=== PATIENT | male | born 1945 | race Caucasian/White ===

== ENCOUNTER 2021-01-12 09:37 | Emergency (ER) | payer MEDICARE, BC, SELFPAY ==
--- NOTE | ~2021-01-12 | XR_ITS ---
EXAMINATION: XR ankle LT min 3V EXAM DATE: 01/12/2021 09:55 INDICATION: FALL down stairs last p.m.; pain/swelling lat Lt ankle . Initial encounter. TECHNIQUE: Left ankle frontal, lateral and oblique projections obtained and reviewed. There is no pr ior study for comparison. FINDINGS: There is acute closed posttraumatic oblique mildly displaced fracture through the left fibu lar distal metaphysis extending into the superolateral aspect of the mortise. There is overlying soft tissue swelling. Medial malleolus appears intact, and mortise relationship appears maintained. Sma ll inferior calcaneal spur. Mild vascular calcifications. IMPRESSION: Left fibular distal metaphyseal fracture into mortise. Orthopedic consult. Reviewed, dictated and finalized at location A.
[2021-01-12 09:44] VITALS: BP 150/70; PULSE 95; RESP 16; TEMP 37.1; O2SAT 99
--- NOTE | 2021-01-12 09:46 | ED.GENADULT ---
HPI - General Adult General Chief complaint: Extremity Injury, Lower Stated complaint: L ANKLE INJURY Time Seen by Provider: 01/12/21 09:46 Source: patient Mode of arrival: ambulatory Limitations: no limitations History of Present Illness HPI narrative: 75-year-old male patient presents to the [facility] with complaints of left ankle pain. Patient states that he fell down one step last night. Patient states he took some aspirin last night as well as elevated it for about 45 minutes this morning. Denies any numbness or tingling to the toes. Patient has been able to walk on it but states it does hurt on the lateral side of the left ankle. Related Data Home Medications Medication Instructions Recorded Confirmed lisinopril-hydrochlorothiazide 1 tablet PO DAILY 10/13/19 01/12/21 sitagliptin [Januvia] 100 mg PO DAILY 10/13/19 01/12/21 aspirin 81 mg tablet,delayed 81 mg PO DAILY 09/18/20 01/12/21 release Allergies Allergy/AdvReac Type Severity Reaction Status Date / Time No Known Allergies Allergy Verified 01/12/21 09:43 Review of Systems Review of Systems: Narrative: CONSTITUTIONAL: Denies fever, chills, or sweats. EYES: Denies visual changes, redness, or discharge. ENT: Denies rhinorrhea, congestion, sore throat, or otalgia. CARDIOVASCULAR: Denies chest pain, palpitations, or edema. RESPIRATORY: Denies cough or dyspnea. GASTROINTESTINAL: Denies abdominal pain, nausea, vomiting, or diarrhea. GENITOURINARY: Denies dysuria or hematuria. SKIN: Denies rash or itching. MUSCULOSKELETAL: Denies back pain, joint pain, or myalgia. Positive left ankle pain since yesterday NEUROLOGIC: Denies headache, numbness, or weakness. PSYCHIATRIC: Denies anxiety or depression. [facility] Past Medical History Medical History BMI 26.0-26.9,adult BMI 27.0-27.9,adult Hyperlipidemia Hypertension Impacted cerumen Type 2 diabetes mellitus without complications Family History Family History Other Cerebrovascular accident Hypertension Social History Social History Smoking status: Never smoker Smoking end date: 10/05/04 Alcohol intake: current Comments At the time of my signature I agree with nursing past medical history, surgical, social, and family history. There is no relevant family history pertinent to the presenting complaint. Exam Narrative: Exam Narrative: GENERAL: Well-appearing, well-nourished, and in no acute distress. HEAD: Normocephalic, atraumatic. EYES: PERRLA and EOMI. ENT: Nares clear, no rhinorrhea or epistaxis. Mucous membranes moist. NECK: Supple. No lymphadenopathy CHEST: Clear to auscultation. No respiratory distress. HEART: Regular rate and rhythm. No murmur heard. Normal peripheral pulses. ABDOMEN: Soft, nontender, nondistended, normal active bowel sounds. EXTREMITIES: Patient is able to bear weight and ambulate but has increased pain to the left ankle. The L ankle is without obvious asymmetry or deformity when compared to the R ankle. Patient can flex/extend, invert/jhoan. No obvious surface trauma, ecchymosis, patient does have some soft tissue swelling noted over the lateral side of the left ankle. No bony tenderness to palpation over the medial or lateral malleolus. Patient does have some tenderness on palpation to the left fibula area. Anterior talofibular ligament, posterior talofibular ligament, calcaneofibular ligament nontender and without swelling. No tenderness or deformity of the midfoot or over the proximal fifth metatarsal. Good DP and posterior tibial pulses and sensation to light touch normal. Talar tilt test is negative for ligament laxity to valgus or vargus stress. Negative anterior draw. Peroneal nerve is intact with strong eversion and plantar flexion. SKIN: Warm, dry, no rash. NEURO: No focal deficits. Alert and oriented x3. C
== END 2021-01-12 10:40 | disposition home or self-care (01) ==
PROVIDERS: Emergency Provider Nurse Practitioner Family; PCP Family Medicine
DX: S82.832A Other fracture of upper and lower end of left fibula, initial encounter for closed fracture (principal); W10.9XXA Fall (on) (from) unspecified stairs and steps, initial encounter; E78.5 Hyperlipidemia, unspecified; I10 Essential (primary) hypertension; E11.9 Type 2 diabetes mellitus without complications
CPT/HCPCS: 29515; 73610; 99214; G0463

== ENCOUNTER 2021-01-25 11:00 | Outpatient (CLI) | payer MEDICARE, BC, SELFPAY ==
[2021-01-25 11:36] LABS: Alanine Aminotransferase 31 U/L (4-50); Cholesterol 133 mg/dL (0-200); HDL Direct 46 mg/dL; Triglycerides 81 mg/dL (<150)
[2021-01-25 11:39] LABS: Hemoglobin A1C 5.5 % (<5.7)
[2021-01-25 11:48] LABS: LDL Cholesterol Direct 68 mg/dL
== END 2021-01-25 11:01 | disposition home or self-care (01) ==
PROVIDERS: PCP Family Medicine; Visit Provider Family Medicine
DX: E78.2 Mixed hyperlipidemia (principal); E11.9 Type 2 diabetes mellitus without complications; Z13.220 Encounter for screening for lipoid disorders
CPT/HCPCS: 36415; 80061; 83036; 84460

== ENCOUNTER 2022-02-09 10:01 | Emergency (ER) | payer MEDICARE, BC, SELFPAY ==
--- NOTE | ~2022-02-09 | XR_ITS ---
EXAMINATION: XR foot RT min 3V DATE: 02/09/2022 10:42 INDICATION: Right foot pain, history of fifth metatarsal fracture. TECHNIQUE: Dorsoplantar, lateral, and 2 oblique views of the right foot were obtained. COMPARISON: 08/12/2012 FINDINGS: There is an old fracture of the fifth metacarpal neck. No acute fracture is identified. The re is mild osteoarthritis of multiple interphalangeal joints. Calcified atherosclerosis is noted. The re is dorsal soft tissue swelling of the foot. IMPRESSION: 1. Dorsal soft tissue swelling of the foot without acute osseous abnormality identified. Old fifth me tatarsal fracture. Reviewed, dictated and finalized at location A. IMPRESSION: 1. Dorsal soft tissue swelling of the foot without acute osseous abnormality id entified. Old fifth metatarsal fracture.
[2022-02-09 10:12] VITALS: BP 167/92; PULSE 87; RESP 16; TEMP 36.3; O2SAT 100
--- NOTE | 2022-02-09 10:28 | ED.EXTPRO ---
HPI - Extremity Problem General Chief complaint: Extremity Problem,Nontraumatic Stated complaint: rt foot swelling Source: patient Mode of arrival: ambulatory Limitations: no limitations History of Present Illness HPI Narrative: Patient presents for evaluation of pain, swelling, redness to the right foot. He indicates approximately 7 to 10 days ago he noticed some discomfort in the affected area. He cannot identify any recent injury. He did fracture his 5th metatarsal many years ago but did not require surgical intervention. He has not had an problems with his foot since that time. Approximately four days ago he noted redness to the right foot. He contacted ortho, Dr Ragsdale, and is scheduled to see him in two days. He currently rates his pain as 7/10, more noticeable with weightbearing and movement. He has not been taking any medication for his symptoms. He is diabetic and compliant with januvia. Last a1c was 5.8 per his reports. He checks his BS daily at home with most readings 120-125. No fever, chills, nausea, vomiting, drainage from the area. No hx of gout, although he is on hctz. Related Data Home Medications Medication Instructions Recorded Confirmed ascorbate calcium (vitamin C) PO 01/16/21 12/16/21 aspirin 81 mg tablet,delayed 81 mg PO DAILY 01/16/21 12/16/21 release multivitamin 1 tablet PO DAILY 01/16/21 12/16/21 Allergies Allergy/AdvReac Type Severity Reaction Status Date / Time metformin AdvReac Mild GI upset Verified 02/09/22 10:12 Review of Systems Review of Systems: CONSTITUTIONAL: Denies fever, chills, or sweats. EYES: Denies visual changes, redness, or discharge. ENT: Denies rhinorrhea, congestion, sore throat, or otalgia. CARDIOVASCULAR: Denies chest pain, palpitations, or edema. RESPIRATORY: Denies cough or dyspnea. GASTROINTESTINAL: Denies abdominal pain, nausea, vomiting, or diarrhea. GENITOURINARY: Denies dysuria or hematuria. SKIN: Reports redness to the right foot. Denies rash or itching. MUSCULOSKELETAL: Reports right foot pain. Denies back pain NEUROLOGIC: Denies headache, numbness, dizziness, or weakness. PSYCHIATRIC: Denies anxiety or depression. [facility] Past Medical History Medical History BMI 26.0-26.9,adult BMI 27.0-27.9,adult Erectile dysfunction Hyperlipidemia Hypertension Impacted cerumen Low testosterone Screen for colon cancer Type 2 diabetes mellitus without complications Surgical History Surgical History History of hernia repair Family History Family History Father Myocardial infarction Other Breast cancer Cerebrovascular accident Hypertension Social History Social History Smoking status: Former smoker Smoking end date: 10/05/03 Alcohol intake: current Drinks per week: 5 Substance use: never Living arrangements: with family Gender identity (if verbalized by the patient): Male Sexual Orientation (if Verbalized by the Patient): Straight or Heterosexual Spiritual care concerns: No Exam Narrative: GENERAL: Well-appearing, well-nourished, and in no acute distress. HEAD: Normocephalic, atraumatic. EYES: PERRLA and EOMI. ENT: Nares clear, no rhinorrhea or epistaxis. Mucous membranes moist. Oropharynx without tonsillar hypertrophy exudate or other lesions. Bilateral TMs pearly white nonbulging NECK: Supple. No adenopathy or masses. No carotid bruits or JVD CHEST: Clear to auscultation. No respiratory distress. No wheezes rales or rhonchi HEART: Regular rate and rhythm. No murmur heard. Normal peripheral pulses. ABDOMEN: Soft, nontender, nondistended, normal active bowel sounds. EXTREMITIES: Normal range of motion. There is edema to dorsal aspect of right foot with associated tenderness
== END 2022-02-09 11:06 | disposition home or self-care (01) ==
PROVIDERS: Emergency Provider Nurse Practitioner; PCP Family Medicine
DX: M79.671 Pain in right foot (principal); E78.5 Hyperlipidemia, unspecified; I10 Essential (primary) hypertension; Z87.891 Personal history of nicotine dependence
CPT/HCPCS: 73630; 99213; G0463

== ENCOUNTER → 2022-02-24 07:57 | Outpatient (CLI) | payer MEDICARE, BC, SELFPAY ==
--- NOTE | ~2022-02-24 | MR_ITS ---
EXAMINATION: MR foot RT wo con DATE: 02/24/2022 08:37 INDICATION: Right foot stress fracture presenting with lateral sided forefoot pain and swelling. TECHNIQUE: Magnetic resonance imaging (MRI) of the right fore/mid foot was performed without intraven ous contrast. Sequences included sagittal T1-weighted FSE, sagittal fluid sensitive FSE STIR, coronal PD-weighted FS FSE, coronal T1-weighted FSE, axial PD-weighted FS FSE, and axial PD-weighted FSE. COMPARISON: Right foot radiographs dated 02/11/2022 FINDINGS: Old healed fracture deformity at the mid to distal diaphysis of the fifth metatarsal. The fracture is healed with 3-4 mm lateral displacement as well as a few millimeter of overriding resulting in some shortening of the metatarsal. No abnormal increased signal to suggest stress reaction. No other fract ures identified. There is some new bone formation along the lateral aspect of the proximal diaphysis of the fourth metatarsal resulting in development of a pseudoarthrosis with the medial margin of the portion of the fifth metatarsal comprising the proximal tip of the fracture margin of the distal frag ment. Mild polyarticular osteoarthritis at the first metatarsophalangeal and a few tarsometatarsal an d interphalangeal joints. Additional mild subarticular edema at the base of the fourth metatarsal and at both sides of the first tarsal metatarsal joint. Visualized portion of the flexor and extensor te ndons are normal. There is feathery muscular edema along side a long thin ganglion cyst extending 4 c m proximal to distal along a likely intrasubstance split tear at the myotendinous junction of the abd uctor digiti minimi muscle. This appears to arise distally near were the tendon passes across a small bone fragment fused along the lateral plantar margin of the fracture and measures up to maximal of 3 mm orthogonal diameter. The Lisfranc ligament as well as the collateral ligament complex at the meta tarsophalangeal and interphalangeal joints are normal. Physiologic amount fluid in the joint spaces. No tenosynovitis. IMPRESSION: 1. Old healed fracture deformity at the fifth metatarsal diaphysis with secondary pseudoarthrosis wit h an adjacent osseous excrescence arising from the lateral margin of the proximal fourth metatarsal d iaphysis. No stress reaction or other acute osseous abnormality. 2. Small elongated intrasubstance ganglion cyst extending along the myotendinous junction of the abdu ctor digiti minimi likely along a longitudinal split tear which may arise from mass effect along the undersurface of the muscle and tendon resulting from a small fused bone fragment at the fracture. 3. 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 Reviewed, dictated and finalized at location B. IMPRESSION: 1. Old healed fracture deformity at the fifth metatarsal diaphysis with seconda ry pseudoarthrosis with an adjacent osseous excrescence arising from the latera l margin of the proximal fourth metatarsal diaphysis. No stress reaction or oth er acute osseous abnormality. 2. Small elongated intrasubstance ganglion cyst extending along the myotendinou s junction of the abductor digiti minimi likely along a longitudinal split tear which may arise from mass effect along the undersurface of the muscle and tend on resulting from a small fused bone fragment at the fracture. 3. 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
== END ==
PROVIDERS: PCP Family Medicine; Visit Provider Orthopaedic Surgery
DX: M84.374A Stress fracture, right foot, initial encounter for fracture (principal); M19.071 Primary osteoarthritis, right ankle and foot
CPT/HCPCS: 73718

== ENCOUNTER → 2022-10-24 09:18 | Outpatient (CLI) | payer MEDICARE, BC, SELFPAY ==
--- NOTE | ~2022-10-24 | MR_ITS ---
EXAMINATION: MR foot RT wo/w con DATE: 10/24/2022 10:23 INDICATION: Right foot pain with chronic wound at the lateral side of the foot TECHNIQUE: Magnetic resonance imaging (MRI) of the affected fore/mid foot was performed without intra venous contrast. Sequences included sagittal T1-weighted FSE, sagittal fluid sensitive FSE STIR, la nal PD-weighted FS FSE, coronal T1-weighted FSE, axial PD-weighted FS FSE, axial PD-weighted FSE and axial T1-weighted FS FSE. Postcontrast axial, sagittal and coronal T1-weighted FS FSE were also obtai sj. COMPARISON: Right foot radiographs dated 10/14/2022 and MRI dated 02/24/2022 FINDINGS: Old healed fifth metatarsal diaphyseal fracture deformity again seen with likely small pseudoarthrosi s between the medial side of the fracture margin and the closely opposed lateral margin of the fourth metatarsal diaphysis hematoma which is some associated heterotopic ossification. No acute fracture, osteomyelitis or other pathologic marrow replacing process. Mild polyarticular osteoarthritis with un changed mild degenerative subarticular edema-like signal change at the bases lateral base of the four th metatarsal and mild subarticular cystlike changes at both sides of the dorsolateral aspect of the first tarsal metatarsal joint. There is soft tissue swelling with subcutaneous edema lateral to the p roximal to mid fifth metatarsal. Prior muscular edema and swelling and small intramuscular likely flu id collection involving the abductor digiti minimi appears to have resolved. There is a new T2 hyperi ntense and enhancing lesion in the more superficial subcutaneous tissues underlying the marker indica ting the region of concern. The appearance on the sagittal T2-weighted images however is suspicious for a small abscess or phlegmon measuring 18 x 9 x 4 mm surrounding an approximately 11 mm long irreg ular linear low signal intensity filling defect which suggests a foreign body although no evident rad iopaque foreign body is evident on the prior radiographs suggests this could represent either an ecta tic matter, blastic or other material of similar density to soft tissue. IMPRESSION: 1. 18 x 9 x 4 mm T2 hyperintense enhancing lesion in the subcutaneous tissues posterolateral to the m id fifth metatarsal which surrounds an 11 mm thin low signal intensity filling defect. This is most s uspicious for a small abscess/phlegmonous change surrounding a retained foreign body. Reviewed, dictated and finalized at location A. PUSHER IMPRESSION: 1. 18 x 9 x 4 mm T2 hyperintense enhancing lesion in the subcutaneous tissues p osterolateral to the mid fifth metatarsal which surrounds an 11 mm thin low sig nal intensity filling defect. This is most suspicious for a small abscess/phleg monous change surrounding a retained foreign body.
== END ==
PROVIDERS: PCP Family Medicine; Visit Provider Orthopaedic Surgery
DX: M79.671 Pain in right foot (principal)
CPT/HCPCS: 73720; A9577

== ENCOUNTER 2022-11-03 08:54 | Outpatient (CLI) | payer MEDICARE, BC, SELFPAY ==
--- NOTE | 2022-11-03 09:17 | ECG_ITS ---
Measurements Intervals [place] Rate: 53 P: 39 ID: [id number] QRS: 8 QRSD: 80 T: 9 QT: 368 QTc: 346 Interpretive Statements SINUS BRADYCARDIA BASELINE ARTIFACT- I, III, AVR, AVL, AVF BORDERLINE ECG NO PREVIOUS ECG AVAILABLE FOR COMPARISON Electronically Signed On 11-03-2022 11:59:08 [employer] by Taye Yi D.O.
[2022-11-03 09:50] LABS: Anion Gap 6 mmol/L (8-16); Blood Urea Nitrogen 15 mg/dL (9-20); Calcium 8.7 mg/dL (8.4-10.2); Carbon Dioxide 29 mmol/L (22-30); Chloride 99 mmol/L (98-107); Estimated Glomerular Filt Rate > 60; Glucose 143 mg/dL (65-110); Potassium 3.8 mmol/L (3.4-5.0); Sodium 134 mmol/L (137-145)
== END 2022-11-03 08:55 | disposition home or self-care (01) ==
LOC: ANHSURGERY 08:59
PROVIDERS: Anesthesiology; PCP Family Medicine; Visit Provider Orthopaedic Surgery
DX: E11.9 Type 2 diabetes mellitus without complications (principal); I10 Essential (primary) hypertension; Z01.818 Encounter for other preprocedural examination; R94.31 Abnormal electrocardiogram [ECG] [EKG]
CPT/HCPCS: 36415; 80048; 93005

== ENCOUNTER 2022-11-10 01:19 | Day surgery (SDC) | payer MEDICARE, BC, SELFPAY ==
[2022-10-30 15:08] VITALS: BMI 26.6
--- NOTE | 2022-10-30 15:37 | PC.NURSE ---
Report to the Outpatient Waiting Room, entrance under the green pavilion located off [facility], at time __6:00AM on date ___11/10/22____. Planned Procedure Time: __7:30AM . Time changes happen often and if your time is changed the preop area will call you the afternoon before. - You and your visitor will be asked to self-screen and do not enter if you have any COVID symptoms. - Only one visitor is requested with a max of two and NO children visitors are allowed at this time. - The patient visitor may be requested to leave or wait in car when not with patient due to distancing restrictions. - A mask is optional within the hospital at this time. Patients may have clear liquids (water, carbonated beverages, clear teas, apple juice) until 3 hours prior to surgery with a maximum of 20 ounces. - No food from midnight until time of surgery Take the following medications with a SIP of water the morning of surgery: ___NONE DO NOT STOP ANY OF YOUR OTHER PRESCRIPTION MEDICATIONS PRIOR TO SURGERY ?EXCEPT THE FOLLOWING Medications to discontinue per physician HOLD ASPIRIN7 DAYS PRE-OP PER DR BROWNING( PER PATIENT)- LAST DOSE 11/03/22, HOLD ALL VITAMINS/SUPPLEMENTS 3 DAYS PRE-OP- LAST DOSE 11/06/22 Please no make-up, nail tamazight, hairspray, perfume, deodorant, or body powder the day of surgery. No jewelry (including any body piercings) or valuables the day of surgery, leave them at home. Please take a shower or bath the night before, or the morning of, surgery with an antibacterial soap. Wear comfortable, loose fitting clothing. Children are encouraged to wear pajamas. - Jewelry must be removed prior to entering the operating room. Rings and piercings that are not removed may be cut off. - The hospital will not accept responsibility for valuables. - Please leave all valuables, including medications, at home the day of surgery. If you are going home after surgery, a licensed party bus driver must drive you home. - NO public transportation without another adult if you receive anesthesia. - We recommend that an adult stay with you for 24 hours following discharge. - We also recommend that you do not drive, make important decision, drink alcoholic beverages, or take any drugs that were not prescribed by your health care provider for at least 24 hours after your discharge time. Follow any additional instructions given to you from your surgeon. If you or anyone in your household have experienced Covid symptoms in the past week, please notify your surgeon or the nurse liaison at the phone number below for possible testing. Telephone instructions given to __PATIENT & WIFE___and asked if any additional questions and then verbalized understanding. Patient advised to call surgeon office or pre surgery nurse liaison [phone] if any additional questions.
--- NOTE | 2022-11-07 13:51 | PM.IMHP ---
H&P: HPI History of Present Illness Date/Time: 11/07/22 13:51 Chief Complaint: Right foot ulcer Narrative: 76-year-old with right foot 5th metatarsal fracture treated non operatively. Developed ulceration with a dose a lateral foot. Several biopsies failed to show etiology. MRI shows inflammation and possible foreign body at the 5th metatarsal. Review of Systems Constitutional: Constitutional: Denies fever(s) Eyes: Eyes: Denies blurry vision ENT: Reports Normal hearing present Cardiovascular: Cardiovascular: Denies chest pain and Denies dyspnea Respiratory: Respiratory: Denies dyspnea and Denies wheezing Gastrointestinal: Gastrointestinal: Denies abdominal pain Genitourinary: Genitourinary: Denies urinary urgency Musculoskeletal: Musculoskeletal: Reports as per HPI and Denies numbness Integumentary/Breasts: Skin/Breast: Denies changing lesions and Denies sores Neurologic: Reports Normal hearing present, Denies behavioral changes, Denies confusion, Denies numbness and Denies convulsions Psychiatric: Psychiatric: Denies behavioral changes, Denies confusion and Denies hallucinations Endocrine: Endocrine: Denies heat intolerance Hematologic/Lymphatic: Hematologic/Lymphatic: Denies easy bleeding Allergic/Immunologic: Allergic/Immunologic: Denies wheezing [facility] Past Medical History Medical History (Updated 11/07/22 @ 13:54 by Viet Ragsdale MD) 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 Sibling No problems noted. 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[employer] Gender identity (if verbalized by the patient): Male Sexual Orientation (if Verbalized by the Patient): Straight or Heterosexual Spiritual care concerns: No Meds Home Medications and Allergies Home Medications Medication Instructions Recorded Confirmed Type aspirin 81 mg tablet,delayed 81 mg PO DAILY 01/16/21 10/30/22 History release (Adult Aspirin Regimen) multivitamin 1 tablet PO DAILY 01/16/21 10/30/22 History sildenafil 100 mg tablet 100 mg PO DAILY PRN sexual 10/25/21 10/30/22 Rx activity #30 tabs ezetimibe 10 mg tablet 10 mg PO DAILY #90 tabs 07/27/22 10/30/22 Rx mupirocin 2 % topical ointment 1 applic topical BID #22 grams 10/14/22 10/30/22 Rx ascorbate calcium (vitamin C) 500 500 mg PO DAILY 10/30/22 10/30/22 History mg capsule atorvastatin 80 mg tablet 80 mg PO DAILY 10/30/22 10/30/22 History lisinopril 10 1 tablet PO QAM 10/30/22 10/30/22 History mg-hydrochlorothiazide 12.5 mg tablet sitagliptin phosphate 100 mg 100 mg PO QAM 10/30/22 10/30/22 History tablet (Januvia) Allergies Allergy/AdvReac Type Severity Reaction Status D
[2022-11-10] VITALS (7 sets, daily range): BP systolic 101–147; BP diastolic 56–97; PULSE 61–77; RESP 12–18; TEMP 36.3; O2SAT 96–99
--- NOTE | ~2022-11-10 | XR_ITS ---
EXAMINATION: XR surgery orthopedic DATE: 11/10/2022 08:12 INDICATION: Right foot foreign body excision. TECHNIQUE: 3 intraoperative fluoroscopic views of right foot were obtained. I was not present. Fluoro scopy exposure time was 14 seconds. COMPARISON: Right foot radiographs 10/14/22 FINDINGS: There is an old healed fracture deformity of diaphysis of fifth metatarsal. No radiopaque f oreign body. IMPRESSION: 1. No radiopaque foreign body. Reviewed, dictated and finalized at location A. E DELIVERY CLERK
[2022-11-10] MEDS: ACETAMINOPHEN 500 MG TABLET 1000 MG PO (06:22)
[2022-11-10] MEDS: KETOROLAC 15 MG/ML VIAL (*BKC) IV PUSH (06:22)
[2022-11-10 06:37] LABS: Glucose Point of Care 126 mg/dl (65-105)
[2022-11-10] MEDS: LACTATED RINGERS 1,000 ML 30 ML IV CONT (07:00)
--- NOTE | 2022-11-10 07:13 | WPDANESEPPF ---
Anes - Initial Pre Proc Eval Procedure: Operation Date: 11/10/22 07:30 Proposed Procedures p Excision Foreign Body Right Foot with Debridement - Viet Ragsdale MD Date/Time: 11/10/22 07:13 Surgeon: Viet Ragsdale MD Pre Op Diagnosis: right foot ulcer, foreign body Patient Data Age: 76 Gender: M Height: 1.68 m Weight: 75 kg Allergies Allergy/AdvReac Type Severity Reaction Status Date / Time metformin AdvReac Mild GI upset Verified 10/30/22 15:01 Home Medications Medication Instructions Recorded Confirmed Type aspirin 81 mg tablet,delayed 81 mg PO DAILY 01/16/21 10/30/22 History release (Adult Aspirin Regimen) multivitamin 1 tablet PO DAILY 01/16/21 10/30/22 History sildenafil 100 mg tablet 100 mg PO DAILY PRN sexual 10/25/21 10/30/22 Rx activity #30 tabs ezetimibe 10 mg tablet 10 mg PO DAILY #90 tabs 07/27/22 10/30/22 Rx mupirocin 2 % topical ointment 1 applic topical BID #22 grams 10/14/22 10/30/22 Rx ascorbate calcium (vitamin C) 500 500 mg PO DAILY 10/30/22 10/30/22 History mg capsule atorvastatin 80 mg tablet 80 mg PO DAILY 10/30/22 10/30/22 History lisinopril 10 1 tablet PO QAM 10/30/22 10/30/22 History mg-hydrochlorothiazide 12.5 mg tablet sitagliptin phosphate 100 mg 100 mg PO QAM 10/30/22 10/30/22 History tablet (Januvia) Laboratory Tests 11/10/22 06:34 POC Capillary Glucose 126 mg/dl H mg/dl (65-105) Patient hx anesthesia problems: none Family hx anesthesia problems: other (brother combative) Results Review: All pre-operative results and documents have been reviewed as part of the pre-operative evaluation. [facility] Past Medical History Medical History 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 Sibling No problems noted. 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[employer] Gender identity (if verbalized by the patient): Male Sexual Orientation (if Verbalized by the Patient): Straight or Heterosexual Spiritual care concerns: No Anes - Eval Final PreProcedure Day of Procedure 11/10/22 07:13 Patient weight: overweight Heart: regular rate and rhythm Lungs: decreased breath sounds Airway: Mallampati scale class II Neurological: alert and oriented Last oral intake: >/= 8 hours ASA classification: III Emergent: no Anesthetic plan: proceed Anesthesia type and monitoring: general LMA and standard monitoring Results Review: All pre-operative results and documents have been reviewed as part of the pre-operative evaluation. Informed Consent: The patient's anesthetic plan and its attendant risks and benefits wer
--- NOTE | 2022-11-10 07:20 | WPDHPUPDATE1 ---
History and Physical Update Update Date/Time: 11/10/22 07:20 History and Physical has been reviewed, including an updated exam of the patient. There are NO changes in the patient's condition. Risks, benefits, and alternatives have been discussed and questions answered. Patient agrees to proceed with procedure.
[2022-11-10] MEDS: ceFAZolin 2 GM/D5W 50 ML 2 GM/50 ML BAG IVPB (07:27)
[2022-11-10] MEDS: BUPivacaine HCL 0.5% 10 ML AMP 30 ML INFILTRATE (07:47)
[2022-11-10 08:28] LABS: Glucose Point of Care 126 mg/dl (65-105)
[2022-11-10] MEDS: fentaNYL CITRATE INJ (*CRX) 100 MCG/2 ML VIAL 25 MCG IV PUSH (08:29)
--- NOTE | 2022-11-10 08:29 | W.PM.PROC2 ---
Procedure Note - Detailed Date of Procedure 11/10/22 Pre-op Diagnosis right foot ulcer, foreign body Post-op Diagnosis Other (Exostosis right 5th metatarsal) Procedure Performed excision exostosis right 5th metatarsal Surgeon Viet Ragsdale MD Saturation Equipment Operator 1st medical research assistant Anesthesia General Indications 76-year-old gentleman with a nonhealing ulcer over the dorsal lateral aspect of the right foot. Previous 5th metatarsal fracture. MRI shows inflammation. Patient presents for operative treatment due to nonhealing ulcer. Findings Inflammatory tissue extending from the ulcer to the 5th metatarsal exostosis. Description of Procedure Patient identified in the preoperative holding. Informed consent given. Operative extremity marked. Patient received intravenous antibiotics. Patient brought to the operating room where underwent general anesthetic by anesthesia team. Positioned supine on operating room table. Time-out performed confirming the patient, site of the surgery and the plan. Right foot prepped draped usual sterile surgical fashion using a Betadine prep solution. Foot and ankle exsanguinated and calf tourniquet inflated to 225 mmHg. Local anesthetic with 0.5% Marcaine plain. A 6 mm ulcer was present over the dorsal lateral aspect of the right foot. Longitudinal incision was made over the 5th metatarsal with a 15 blade knife ellipsing the ulcer and excising this as 1 unit. The ulcer continued down to the 5th metatarsal bone where there was exostosis present from the previous fracture healing. Osteotome and rongeur used to remove the exostosis. No abscess, infection or foreign body was noted. Wound then irrigated. The ulcer and surrounding soft tissue were passed off as specimen. Image intensification was brought in to confirm the resection of the exostosis as well as healing of the 5th metatarsal. Soft tissue closed with 3-0 Monocryl interrupted suture. Skin repaired with 4-0 nylon interrupted suture. Sterile dressing applied. The patient was then woken from anesthesia, extubated and taken to the recovery room in stable condition. All sponge, needle, instrument counts were correct at the end of the case. Estimated Blood Loss 2 Tourniquet Time 35 Drains No Packing No Pathology Yes ( Ulcer and soft tissue dorsal lateral foot from the skin surface extending to the metatarsal bone.) Complications None Condition Stable Disposition PACU [facility] Billing Surgery - Charge Forward: Surgery Billing ([id number])
== END 2022-11-10 09:58 | disposition home or self-care (01) ==
PROVIDERS: PCP Family Medicine; Visit Provider Orthopaedic Surgery
PROC: (CPT 28104; principal; 2022-11-10 07:30)
DX: E11.621 Type 2 diabetes mellitus with foot ulcer (principal); M89.9 Disorder of bone, unspecified; L97.516 Non-pressure chronic ulcer of other part of right foot with bone involvement without evidence of necrosis; S92.351S Displaced fracture of fifth metatarsal bone, right foot, sequela; X58.XXXS Exposure to other specified factors, sequela; I10 Essential (primary) hypertension; E78.5 Hyperlipidemia, unspecified; Z87.891 Personal history of nicotine dependence; Z79.82 Long term (current) use of aspirin; Z79.84 Long term (current) use of oral hypoglycemic drugs
CPT/HCPCS: 28104; 82948; 88300; 88304; 99199; A9270; J0690; J1885; J2405; J2704; J3010; J7120

== ENCOUNTER 2023-01-14 12:18 | Outpatient (NON) | payer MEDICARE, BC, SELFPAY | END 2023-01-14 12:19 | disposition home or self-care (01) | PROVIDERS: PCP Family Medicine; Visit Provider Orthopaedic Surgery | DX: L97.512 Non-pressure chronic ulcer of other part of right foot with fat layer exposed (principal) | CPT/HCPCS: 87070; 87075; 87205 ==

== ENCOUNTER 2023-02-17 06:36 | Outpatient (CLI) | payer MEDICARE, BC, SELFPAY ==
--- NOTE | ~2023-02-17 | MR_ITS ---
MRI of the right foot CLINICAL HISTORY: Chronic ulcer TECHNIQUE: Sagittal T1-weighted and STIR images, axial T1-weighted, T2 fat-sat, and T1 fat-sat images , and coronal T1-weighted and T2 fat-sat images were performed. Following intravenous administration of 15 cc MultiHance gadolinium, T1-weighted fat-sat imaging was performed in the axial, coronal, and sagittal planes. FINDINGS: Bone marrow signals are unremarkable. There is no marrow edema, acute fracture, or evidence for osteomyelitis. There is an old, healed fracture deformity of the distal fifth metatarsal shaft. Visualized joint spaces are relatively well-preserved, with scattered minimal degenerative changes. N o joint effusion evident. Flexor and extensor tendons are intact. Intrinsic musculature of the foot is unremarkable. Visualized plantar fascia is unremarkable. There is a soft tissue ulcer at the lateral aspect of the foot at th e level of the mid shaft of the fifth metatarsal. No distinct abscess evident. No other soft tissue a bnormality identified. IMPRESSION: Soft tissue ulcer at the lateral foot at the level of the mid fifth metatarsal shaft. No osteomyelitis or abscess evident. Old, healed fracture deformity of the distal fifth metatarsal shaft. Reviewed, dictated and finalized at [facility].
== END 2023-02-17 06:37 | disposition home or self-care (01) ==
PROVIDERS: PCP Family Medicine; Visit Provider Orthopaedic Surgery
DX: L97.512 Non-pressure chronic ulcer of other part of right foot with fat layer exposed (principal)
CPT/HCPCS: 73720; A9577

== ENCOUNTER 2024-03-16 16:27 | Outpatient (CLI) | payer MEDICARE, BC, SELFPAY ==
--- NOTE | ~2024-03-16 | MR_ITS ---
MRI of the brain Clinical History: Amnesia Technique: Axial and sagittal T1-weighted images were acquired. These were followed by axial T2-weigh tanya, diffusion weighted, gradient, and FLAIR images. Findings: There is no acute infarct, intracranial hemorrhage, or mass lesion. There are minimal chron ic white matter changes in the periventricular white matter. Ventricles and subarachnoid spaces are minimally dilated. Orbits are unremarkable. There is right max illary sinus disease. Remaining paranasal sinuses and mastoid air cells are clear. Major intracranial flow voids are intact. Sagittal midline structures are intact. IMPRESSION: No acute infarct, intracranial hemorrhage, or mass lesion. Minimal chronic microvascular ischemic changes. Right maxillary sinus disease. Reviewed, dictated and finalized at location .
== END 2024-03-16 16:28 | disposition home or self-care (01) ==
LOC: ANHIMG 16:27
PROVIDERS: PCP Family Medicine; Visit Provider Family Medicine
DX: R41.3 Other amnesia (principal); R41.0 Disorientation, unspecified
CPT/HCPCS: 70551

== ENCOUNTER 2025-06-06 12:30 | Outpatient (RCR) | payer MEDICARE, BC, SELFPAY ==
--- NOTE | 2025-03-31 12:50 | OPREHPOC ---
Outpatient Therapy Plan of Care This is a Multidisciplinary Plan of Care that may contain components documented by all disciplines (PT, OT, and ST.) ST Problem 1 ST Problem #[address] Goal 1 Goal / Goal Update The patient will participate in home programming to improve carry over/generalization of skills to home environment. Target Visit 6 ST Goal 1 Goal / Goal Update Auditory Comprehension 1. The patient will comprehend short complex paragraph length information 2-3 details with 80% minimal cues. 2. The patient will answer complex yes and no questions with 85% minimal cues. Target Visit 10 Goal 1 Goal / Goal Update Verbal Expression: 1. The patient will demonstrate use of compensatory word retrieval techniques provided by speech pathologist 85% minimal cues 2. the patient will state object function for common and abstract items with 85% minimal cues. 3. The patient will name common and abstract items with 85% minimal cues 4. The patient will complete 4-5 simple conversation exchanges without noted word searching 80% of the time using compensatory techniques minimal cues.
--- NOTE | 2025-03-31 12:50 | STOPEVAL1 ---
Assessment and note entered by Nohemy Campbell, DAIRY INSPECTOR Evaluation Information Assessment Status Evaluation Diagnosis R47.01 ICD-10 Condition Codes (ST) Dysphagia, pharyngoesophageal phase R13.14 Subjective Information The patient is a 79 year old male referred by his primary care physician due to concerns of early onset aphasia. The patient and spouse state they have noticed him having difficulty completing sentences, thinking of words, and expressing ideas in daily conversation exchange for a few months. Reported Pain Level Pain Score 0: Self Report Assessment ST Clinical Summary The patient is a 79 year old male referred by his primary care physician due to concerns of early onset aphasia. The patient and spouse state they have noticed him having difficulty completing sentences, thinking of words, and expressing ideas in daily conversation exchanges for a few months. The patient was administered the [facility] Adult Language Evaluation: Areas assessed include Auditory Comprehension, Verbal Expression, Reading Comprehension, and Graphic Expression. Auditory Comprehension: the patient had deficits noted for 3-step/Multiple Step directions 75% accuracy, Complex Yes and No questions 80% accuracy, Complex Paragraph Comprehension 70% accuracy. Difficulty noted secondary to delayed auditory processing, comprehension, and recall. Verbal Expression: Difficulty noted for simple naming of common objects 75% accuracy, Object function description 80% accuracy, Divergent Naming 75% accuracy, and Formulation of complex and simple ideas. Difficulty noted secondary to word-finding and thought organization. Reading Comprehension and Graphic Expression appear within functional limits. Patient and spouse state he does very little reading. Recommending Speech therapy Services to address Auditory Comprehension and Verbal Expression impairments. Reviewed evaluation results and recommendations with the patient and spouse. They are agreeable to treatment. Plan of Care Interventions Treatment of Language ST Services Indicated Yes Treatment Frequency and 1x week x 10 visits. Duration These treatments will address the objective and functional deficits as defined above. The patient will be advanced safely and appropriately in order for the patient to progress towards his/her prior level of function. Additional exercises will be introduced and as well as a comprehensive home exercise program upon discharge, if needed, ?to ensure carryover of functional gains achieved in the clinic. This treatment plan has been reviewed and agreement upon by the patient.
--- NOTE | 2025-06-06 16:18 | STOPREEVAL ---
Assessment and note entered by Nohemy Campbell DIGITAL FORENSICS EXAMINER Evaluation Information Assessment Status Re-evaluation Reported Pain Level Pain Score 0: Self Report Assessment ST Clinical Summary The patient is a 79 year old male referred by his primary care physician due to concerns of early onset aphasia. The patient and spouse state they have noticed him having difficulty completing sentences, thinking of words, and expressing ideas in daily conversation exchanges for a few months. On todays date the patient was re-evaluated to assess benefits of speech-language intervention from the initial evaluation. Patient's spouse reports they have noticed improvement not only within outpatient treatment sessions but also at home. The patient was administered the [facility] Adult Language Evaluation: Areas assessed include Auditory Comprehension, Verbal Expression, Reading Comprehension, and Graphic Expression. Auditory Comprehension: The patient had deficits noted for 3-step/Multiple Step directions 80% accuracy (improved from 75% at the initial evaluation), Complex Yes and No questions 100% accuracy(Improved from the initial evaluation 80%) , Simple Paragraph Comprehension 100% accuracy( Improved from the initial evaluation 70%), Moderate and complex paragraph recall 75-80%( Improved from the initial evaluation 70-75%). Difficulty noted secondary to delayed auditory processing, recall, and sustained attention. Verbal Expression: Difficulty noted for simple naming of common objects 85-90% accuracy(improved from the initial evaluation 75%) abstract/less common objects 75% , Object function description 100% accuracy(improved from the initial evaluation 80%), Divergent Naming 85% accuracy for 8-10 items( Improved from the initial evaluation 75% 3- 4 items simple categories), and Formulation of complex ideas. Difficulty noted secondary to word- retrieval. The patient has shown improvement in comprehension and recall of complex information secondary to improved recall and sustained attention. He has also shown improved sentence formulation in simple conversation exchanges with reduced episodes of word searching. Reading Comprehension and Graphic Expression remain within functional limits. Recommending continued speech therapy services, five additional visits to address remaining goals for Auditory Comprehension with recall of moderate and complex paragraph length information and Verbal Expression to address word retrieval and utilization of compensatory techniques with increased accuracy and carry over into everyday routines. Reviewed re-evaluation results and recommendations with the patient and spouse. They are agreeable to five additional treatment sessions. Plan of Care Interventions Treatment of Language ST Services Indicated Yes Treatment Frequency and 1x week x 10 visits. Duration These treatments will address the objective and functional deficits as defined above. The patient will be advanced safely and appropriately in order for the patient to progress towards his/her prior level of function. Additional exercises will be introduced and as well as a comprehensive home exercise program upon discharge, if needed, ?to ensure carryover of functional gains achieved in the clinic. This treatment plan has been reviewed and agreement upon by the patient.
--- NOTE | 2025-06-06 16:19 | OPREHPOC ---
Outpatient Therapy Plan of Care This is a Multidisciplinary Plan of Care that may contain components documented by all disciplines (PT, OT, and ST.) ST Problem 1 ST Problem #[address] Goal 1 Goal / Goal Update The patient will participate in home programming to improve carry over/generalization of skills to home environment. 06/06/25 Goal update: Goal Met Utilizing strategies to carry over to home environment outside treatment. Target Visit [address] Goal 1 Goal / Goal Update Auditory Comprehension 1. The patient will comprehend short complex paragraph length information 2-3 details with 80% minimal cues. 06/06/25 Update: Goal Met : Simple paragraph length information 100% 2 details, Short moderate paragraph length information 75-80% minimal cues. 2. The patient will answer complex yes and no questions with 85% minimal cues. 06/06/25 Update: Goal Met: Answering yes and no questions 100% Independent. Target Visit [address] Goal 2 Goal / Goal Update New Goals: Auditory Comprehension: 1. The patient will comprehend/recall moderate and complex paragraph length information 2-3 details with 85% accuracy minimal cues Target Visit 5 ST Goal 1 Goal / Goal Update Verbal Expression: 1. The patient will demonstrate use of compensatory word retrieval techniques provided by HEAD ATHLETIC TRAINER 85% minimal cues 06/06/25 Update: Goal Partially Met: The patient is using compensatory techniques to assist in word retrieval (word description, first letter, object function) 75-80% of time minimal cues 2. The patient will state object function for common and abstract items with 85% minimal cues. 06/06/25 Update: Goal Met: The patient states the object function 100% no cues. 3. The patient will name common and abstract items with 85% minimal cues 06/06/25 Update: Goal Partially Met: The patient is naming common items (10-12 with 85% increased from 4-5 at the initial evaluation. Abstract items 5-7 75% increased from 2-3 at the initial evaluation) 4. The patient will complete 4-5 simple conversation exchanges without noted word searching 80% of the time using compensatory techniques minimal cues 06/06/25 Update: Goal Met: The patient is completing 4-5 conversational exchanges without noted word searching 80% of time and has begun to utilize techniques more effective to compensate for word searching. Progress Partially Met ST Goal 2 Goal / Goal Update New Goals: Verbal Expression: 1. The patient will demonstrate use of compensatory word retrieval techniques (word description, word function, first letter of word) 85% minimal cues. 2. The patient will name (7-10 items) for common and abstract categories with 85% minimal cues. Target Visit 5
== END 2025-06-29 23:59 | disposition home or self-care (01) ==
LOC: ANHST 12:30
PROVIDERS: PCP Family Medicine; Visit Provider Family Medicine
DX: R47.01 Aphasia (principal); R13.14 Dysphagia, pharyngoesophageal phase
CPT/HCPCS: 92507; 92523

== ENCOUNTER 2025-08-29 12:30 | Outpatient (RCR) | payer MEDICARE, BC, SELFPAY ==
--- NOTE | 2025-08-29 13:11 | STOPDC ---
Assessment and note entered by Nohemy Campbell SALES OPERATIONS ANALYST Evaluation Information Assessment Status Discharge Reported Pain Level Pain Score 0: Self Report Assessment ST Clinical Summary Initial Evaluation: The patient is a 79 year old male referred by his primary care physician due to concerns of early onset aphasia. The patient and spouse state they have noticed him having difficulty completing sentences, thinking of words, and expressing ideas in daily conversation exchanges for a few months. On todays date the patient was re-evaluated to assess benefits of speech-language intervention from the initial evaluation. Patient's spouse reports they have noticed improvement not only within outpatient treatment sessions but also at home. The patient was administered the [facility] Adult Language Evaluation: Areas assessed include Auditory Comprehension, Verbal Expression, Reading Comprehension, and Graphic Expression. Auditory Comprehension: The patient had deficits noted for 3-step/Multiple Step directions 80% accuracy (improved from 75% at the initial evaluation), Complex Yes and No questions 100% accuracy(Improved from the initial evaluation 80%) , Simple Paragraph Comprehension 100% accuracy( Improved from the initial evaluation 70%), Moderate and complex paragraph recall 75-80%( Improved from the initial evaluation 70-75%). Difficulty noted secondary to delayed auditory processing, recall, and sustained attention. Verbal Expression: Difficulty noted for simple naming of common objects 85-90% accuracy(improved from the initial evaluation 75%) abstract/less common objects 75% , Object function description 100% accuracy(improved from the initial evaluation 80%), Divergent Naming 85% accuracy for 8-10 items( Improved from the initial evaluation 75% 3- 4 items simple categories), and Formulation of complex ideas. Difficulty noted secondary to word- retrieval. the patient has shown improvement in comprehension and recall of complex information secondary to improved recall and sustained attention. He has also shown improved sentence formulation in simple conversation exchanges with reduced episodes of word searching. Reading Comprehension and Graphic Expression remain within functional limits. Recommending continued speech therapy services, five additional visits to address remaining goals for Auditory Comprehension with recall of moderate and complex paragraph length information and Verbal Expression to address word retrieval and utilization of compensatory techniques with increased accuracy and carry over into everyday routines. Reviewed re-evaluation results and recommendations with the patient and spouse. They are agreeable to five additional treatment sessions. 08/29/25: Discharge: The patient is being discharged from speech services. Patient has made improvement with recall and word retrieval from initial evaluation. Still demonstrating difficulty with word-retrieval for conversation level. Provided a written HEP to continue after discharge. Thanks for the consult Plan of Care ST Services Indicated No
== END 2025-08-29 13:43 | disposition home or self-care (01) ==
LOC: ANHST 12:30
PROVIDERS: PCP Family Medicine; Visit Provider Family Medicine
DX: R47.01 Aphasia (principal); R13.14 Dysphagia, pharyngoesophageal phase
CPT/HCPCS: 92507